=== PATIENT | male | born 1955 | race Caucasian/White ===

== ENCOUNTER 2017-03-26 14:20 | Emergency (ER) | payer OTHER ==
[~2017-03-26] VITALS: Ht 170.2 cm; Wt 118.8 kg
[2017-03-26 14:56] LABS: HEMATOCRIT 40.4 % (38.0-50.0); MCH 26.4 PG (29.0-34.0); MCHC 32.2 G/DL (30.0-36.0); MCV 81.9 FL (86-99); MEAN PLAT.VOLUME 10.1 uM^3 (9.0-12.4); PLATELET COUNT 225 K/uL (156-360); RBC DIS.WIDTH-CV 15.3 % (11.8-14.6); RBC DIS.WIDTH-SD 45.6 % (39-53); RED BLOOD COUNT 4.93 M/uL (4.00-5.50); WHITE BLOOD COUNT 10.9 K/uL (4.1-10.2)
[2017-03-26 15:01] LABS: POINT-OF-CARE METER ID UU13113702
[2017-03-26 15:05] LABS: CHLORIDE 103 mEq/L (99-109); POTASSIUM 4.2 mEq/L (3.7-5.4); SODIUM 134 mEq/L (136-147)
[2017-03-26 15:07] LABS: GLUCOSE 159 mg/dL (70-99)
[2017-03-26 15:08] LABS: ANION GAP 10 MEQ/L (2-14)
[2017-03-26 15:11] LABS: UREA NITROGEN (BUN) 15 mg/dL (9-23)
[2017-03-26 15:12] LABS: GFR ESTIMATE (CALCULATED) > 59 mL/min/
[2017-03-26 15:17] LABS: TROP-I INTERPRETATION NEGATIVE; TROPONIN-I < 0.01 ng/mL (0.0-0.30)
[2017-03-26] MEDS ORDERED: LISINOPRIL20 MG PO (18:03)
[2017-03-26] MEDS ORDERED: METFORMIN HCL500 MG PO (18:03)
[2017-03-26] MEDS ORDERED: ESCITALOPRAM OX10 MG PO (18:04)
[2017-03-26] MEDS ORDERED: GLIPIZIDE5 MG PO (18:04)
[2017-03-26] MEDS ORDERED: AMLODIPINE BESY10 MG PO (18:04)
[2017-03-26 18:07] VITALS: BP 140/79
== END 2017-03-26 18:08 | disposition home or self-care (01) ==
LOC: EME 14:20
PROVIDERS: Emergency Medicine
DX: R55 Syncope and collapse (principal); I95.1 Orthostatic hypotension; E86.0 Dehydration; Y99.0 Civilian activity done for income or pay; W18.30XA Fall on same level, unspecified, initial encounter; Y93.89 Activity, other specified; Y92.812 Truck as the place of occurrence of the external cause; E11.9 Type 2 diabetes mellitus without complications; I10 Essential (primary) hypertension; F17.200 Nicotine dependence, unspecified, uncomplicated
CPT/HCPCS: 70450; 71020; 80048; 82948; 84484; 85027; 93005; 99281; 99285; J7030